=== PATIENT | female | born 1940 | race Caucasian/White ===

== ENCOUNTER 2018-11-11 19:46 | Inpatient (IN) | payer OTHER ==
[~2018-11-11] VITALS: Ht 172.7 cm; Wt 88.7 kg
[2018-11-11 21:34] LABS: Basophils # (auto) 0 uL; Basophils % (auto) 0.3 % (0.0-2.0); Eosinophils # (auto) 0.2 uL; Eosinophils % (auto) 2.4 % (0.0-7.0); Hematocrit 35.5 % (36.0-46.0); Hemoglobin 11.5 g/dL (12.2-16.2); Lymphocytes # (auto) 1.3 uL; Mean Corpuscular Hemoglobin 28.4 pg (28.0-32.0); Mean Corpuscular Hgb Conc. 32.5 g/dL (32.0-36.0); Mean Corpuscular Volume 87.5 fL (80.0-100.0); Monocytes # (auto) 0.7 uL; Neutrophils # (auto) 4.4 uL; Neutrophils % (auto) 67.3 % (37.0-80.0); Platelet Count (auto) 385 10^3/uL (140-450); Red Blood Cells 4.06 10^6/uL (4.0-5.20); Red Cell Distribution Width 14.6 % (11.8-14.3); White Blood Cell 6.5 10^3/uL (4.4-10.8)
[2018-11-11 21:55] LABS: Alanine Aminotransferase 16 U/L (13-56); Albumin 3.4 g/dL (3.4-5.0); Anion Gap 8 (5-15); Aspartate Aminotransferase 22 U/L (15-37); Blood Urea Nitrogen 15 mg/dL (7-18); Calcium 8.5 mg/dL (8.5-10.1); Carbon Dioxide 24 mmol/L (21-32); Chloride 108 mmol/L (98-107); Glucose 94 mg/dL (74-106); Potassium 4.3 mmol/L (3.5-5.1); Sodium 140 mmol/L (136-145)
[2018-11-11 21:56] LABS: INR 0.94 (0.9-1.15); Partial Thromboplastin Time 27.6 sec (23.64-32.05)
[2018-11-11 22:00] LABS: Alkaline Phosphatase 76 U/L (45-117); BUN/Creatinine Ratio 17.2; Bilirubin, Total 0.3 mg/dL (0.2-1.0); GFR African American 81 mL/min; GFR Non-African American 67 mL/min; Total Protein 7.4 g/dL (6.4-8.2)
[2018-11-11 22:43] LABS: Urine Bacteria NONE SEEN /hpf (None Seen); Urine Blood TRACE /uL (Negative); Urine Hyaline Cast FEW /lpf (0 - 2); Urine Mucus FEW (None Seen); Urine Specific Gravity 1.019 (1.001-1.035); Urine WBC 32 /hpf (0 - 5)
[2018-11-12] MEDS ORDERED: GASTROGRAFIN 30 ML SOL ONE (01:58)
[2018-11-12] MEDS ORDERED: IOHEXOL 300 MG/ML 100ML BOTTLE IJ ONE (01:59)
[2018-11-12] MEDS ORDERED: ONDANSETRON HCL 4 MG/2 ML VIAL IV ONE (02:15)
[2018-11-12] MEDS ORDERED: MORPHINE SULFATE 4 MG/ML SYR/VIAL IV ONE (02:15)
[2018-11-12] MEDS ORDERED: SODIUM CHL 0.9% IV ONE (02:45)
[2018-11-12] MEDS ORDERED: ACETAMINOPHEN 325 MG TAB PO PRN (02:45)
[2018-11-12] MEDS ORDERED: MORPHINE SULFATE 4 MG/ML SYR/VIAL IV PRN (02:45)
[2018-11-12] MEDS ORDERED: FAMOTIDINE IV ONE (02:45)
[2018-11-12] MEDS ORDERED: SODIUM CHLORIDE 0.9% 1,000 ML IV ONE (02:45)
[2018-11-12] MEDS ORDERED: TEMAZEPAM 15 MG CAP PO PRN (02:45)
[2018-11-12] MEDS ORDERED: ONDANSETRON HCL 4 MG/2 ML VIAL IV PRN (02:45)
[2018-11-12] MEDS: SODIUM CHLORIDE 0.9% 1,000 ML IV SCH ×2 (02:45→15:16)
[2018-11-12] MEDS ORDERED: cefTRIAXone 1GM/50ML D5W 50 ML IV ONE (02:45)
[2018-11-12 03:13] LABS: Hematocrit 32.7 % (36.0-46.0)
--- NOTE | 2018-11-12 09:05 | NUR ---
PT IN ULTRASOUND FOR A DIAGNOSTIC PARACENTESIS BY DR MINAYA.TIME OUT CALLED AND PROCEDURE STARTED. [id number]%. 750 ML OF JACKY FLUID REMOVED AND SENT TO LAB AND PATHOLOGY.PT C/O PAIN. STATES SHE HAS BEEN REQUESTING PAIN MED ALL NIGHT. MEDICATED WITH MORPHINE 2MG IVP.
[2018-11-12] MEDS: HYDROcodone-ACET 5/325MG TAB PO PRN ×2 (13:49→21:09)
[2018-11-12 17:00] VITALS: BP 111/60
--- NOTE | 2018-11-12 17:45 | NUR ---
Telemetry admit from LAUREEN ARRIAZA admitted to Telemetry unit after SBAR received. Patient oriented to Janice Mead, primary RN, unit, room, bed, and unit policies regarding patient care and visiting hours. Patient now on continuous telemetry monitoring, tele box #5 and telemetry reading on arrival to unit is 70. Patient placed on bedside oxygen, weighed by bedscale and encouraged to call if they need something. All questions and concerns addressed, patient verbalized understanding.
--- NOTE | 2018-11-12 18:59 | NUR ---
Call from Dr. Avalos New call from Dr. Avalos regarding a bed at [facility]. New room will be 217A. Nurse to arrange transport. Plumbing Assembler Installer paged.
--- NOTE | 2018-11-12 19:05 | NUR ---
Call from addiction social worker Received call from addiction social worker Karyna. Made aware of need for transportation for patient to [facility]. Gave this RN number for [facility]. Number is . Made family aware of transport. Will endorse to garage helper.
--- NOTE | 2018-11-12 19:56 | NUR ---
open note assumed care of pt. upon entering room, pt awake and alert. pt family at bedside. pt on 2L nc no distress noted or expressed. pt and family aware of tx plan and also aware of pending transfer to [facility]. no additional questions at this time. will update pt and family as to progress of transfer as info becomes available. call light in reach. will round q1hr and prn.
--- NOTE | 2018-11-12 20:03 | NUR ---
attempted to call report to [facility] nurse. "none available at this time" according to national secretary. left number for call back.
[2018-11-12] MEDS ORDERED: cefTRIAXone 1GM/50ML D5W 50 ML IV SCH (21:00)
--- NOTE | 2018-11-12 21:45 | NUR ---
called report to Polly MASTERS at [facility].
[2018-11-12 22:00] VITALS: BP 126/75
--- NOTE | 2018-11-12 22:15 | NUR ---
arranged transport via [facility]. will call [facility] to make aware of eta. [facility] reports 30min until arrival to [facility] for pickup.
[2018-11-13] MEDS ORDERED: FAMOTIDINE INJECTION 40 MG in SODIUM CHL 0.9% 100 ML IV SCH (10:00)
--- NOTE | 2018-11-15 08:42 | NUR ---
application developer manager 11/12/18 Received page at 7pm from Janice MASTERS stating patient has ss consult to transfer to [facility]. Transfer was already done and room at [facility]. Per Janice all she needs is phone number to [facility] for transportation. Janice was provided with phone number to [facility]. Patient transferred to [facility]. Addendum: 11/15/18 at 0844 by Karyna KING Amended: Links added.
== END 2018-11-12 23:00 | disposition short-term general hospital (02) | DRG 377 ==
LOC: ER 19:47 → OVERFLOW 19:48 → EAST 11-12 17:45 → TELE-EAST 11-12 19:48
PROVIDERS: ADMIT Nurse Practitioner; ATTEND Internal Medicine Geriatric Medicine
PROC: 0W9G3ZZ Drainage of Peritoneal Cavity, Percutaneous Approach (ICD-10-PCS; principal; 2018-11-12)
DX: K62.5 Hemorrhage of anus and rectum (principal); S06.5X0A Traumatic subdural hemorrhage without loss of consciousness, initial encounter; C80.0 Disseminated malignant neoplasm, unspecified; N13.6 Pyonephrosis; R18.8 Other ascites; C78.6 Secondary malignant neoplasm of retroperitoneum and peritoneum; I72.8 Aneurysm of other specified arteries; Z86.73 Personal history of transient ischemic attack (TIA), and cerebral infarction without residual deficits; F32.9 Major depressive disorder, single episode, unspecified; F41.9 Anxiety disorder, unspecified; W18.39XA Other fall on same level, initial encounter; I10 Essential (primary) hypertension; Z96.643 Presence of artificial hip joint, bilateral; I70.0 Atherosclerosis of aorta; D39.12 Neoplasm of uncertain behavior of left ovary; D39.11 Neoplasm of uncertain behavior of right ovary; Y92.238 Other place in hospital as the place of occurrence of the external cause; N83.9 Noninflammatory disorder of ovary, fallopian tube and broad ligament, unspecified; Z80.41 Family history of malignant neoplasm of ovary; Z82.3 Family history of stroke; Z83.3 Family history of diabetes mellitus; Z87.11 Personal history of peptic ulcer disease; Z90.49 Acquired absence of other specified parts of digestive tract; Z90.711 Acquired absence of uterus with remaining cervical stump; Y93.89 Activity, other specified; Y99.8 Other external cause status
CPT/HCPCS: 10022; 36415; 70450; 71045; 72125; 73030; 74176; 74177; 76705; 76942; 80053; 81001; 82378; 83880; 84484; 85014; 85018; 85025; 85610; 85730; 86304; 86850; 86900; 86901; 93005; 96361; 96365; 96367; 96375; G0378; J0696; J2405; J3490